=== PATIENT | female | born 1945 | race Caucasian/White ===

== ENCOUNTER 2024-11-04 16:00 | Emergency (ER) | payer OTHER, MEDICARE ==
[~2024-11-04] VITALS: Ht 162.6 cm; Wt 74.6 kg
[2024-11-04] MEDS ORDERED: AMLODIPINE BESYL5 MG PO (16:25)
[2024-11-04] MEDS ORDERED: TRAZODONE HCL50 MG PO (16:25)
[2024-11-04] MEDS ORDERED: XALATAN2.5 ML OPTH (16:25)
[2024-11-04 19:51] VITALS: BP 156/75
== END 2024-11-04 19:51 | disposition home or self-care (01) ==
LOC: ED 16:00
DX: S06.0X0A Concussion without loss of consciousness, initial encounter (principal); I10 Essential (primary) hypertension; G47.33 Obstructive sleep apnea (adult) (pediatric); V89.2XXA Person injured in unspecified motor-vehicle accident, traffic, initial encounter; Z79.899 Other long term (current) drug therapy; Z88.8 Allergy status to other drugs, medicaments and biological substances
CPT/HCPCS: 70450; 99284-25

== ENCOUNTER 2025-03-02 22:25 | Emergency (ER) | payer MEDICARE, OTHER ==
[~2025-03-02] VITALS: Ht 162.6 cm; Wt 72.5 kg
--- OUTSIDE RECORDS SUMMARY | ~2025-03-02 | XMS | Continuity of Care Document ---
Demographics + + + | Address | [address] | | | [place] [address] | + + + | Preferred Language | Unknown | + + + | Marital Status | | + + + | Gnosticist Affiliation | Unknown | + + + | Race | White | + + + | Ethnic Group | Not or | + + + Author + + + | Author | [facility] | + + + | Organization | [facility] | + + + | Address | [address] | | | [place] [address] | + + + | Phone | | + + + Care Team Providers + + + + | Care [employer] Professor Name | Role | Phone | + + + + Unavailable | Unavailable | + + + + Allergies No information. Encounters No information. Functional Status No information. Immunizations No information. Medications + + + + | date | description | facility | + + + + | (no date) | AMLODIPINE BESYLATE | [facility] | | | | [facility] | + + + + | (no date) | LATANOPROST | [facility] | | | | [facility] | + + + + | (no date) | TRAZODONE HCL | [facility] | | | | [facility] | + + + + Problems No information. Procedures No information. Results/Labs No information. Social History + + + + | date | description | facility | + + + + | (no date) | Unknown if ever smoked | [facility] | | | | [facility] | + + + + Vital Signs No information."
[~2025-03-02 22:25] MED LIST: AMLODIPINE BESYL5 MG PO; TRAZODONE HCL50 MG PO; XALATAN2.5 ML OPTH
[2025-03-02] MEDS ORDERED: FAMOTIDINE 20 MG/ 2 ML VIAL IV ONE (23:00)
[2025-03-02 23:08] LABS: BASOPHILS 1.0 % (0.1-1.2); EOSINOPHILS 0.6 % (0.7-5.8); LYMPHOCYTES 32.4 % (19.3-51.7); MCH 33.0 PG (25.6-32.2); MCHC 34.8 g/dL (32.2-35.5); MCV 94.9 fL (79.4-94.8); MONOCYTES 9.9 % (4.7-12.5); NEUTROPHILS 55.5 % (34.0-71.1); RBC 4.48 M/uL (3.93-5.22)
[2025-03-02 23:25] LABS: ALT (SGPT) 24.0 U/L (14-59); AST (SGOT) 20.0 U/L (15-37); GLOMERULAR FILTRATION RATE,EST 93.0 mL/min (>60); PROTEIN, TOTAL 7.1 g/dL (6.4-8.2); UREA NITROGEN 12.0 mg/dL (7-18)
[2025-03-02 23:34] LABS: BLOOD/HGB, URINE NEGATIVE (Negative); KETONE, URINE NEGATIVE (Negative); LEUK ESTERASE, URINE MODERATE (negative); NITRITE, URINE POSITIVE (negative)
[2025-03-02 23:39] LABS: EPITHELIAL CELLS, URINE SQUAMOUS 1+ /lpf (0-1+)
[2025-03-02 23:40] LABS: BACTERIA, URINE 4+ /hpf (negative); CASTS, URINE NONE SEEN \\lpf; CRYSTALS, URINE AMORPHOUS PHOSPH 3+ (0-1+); REFLEX CULTURE, URINE Yes (No)
[2025-03-02] MEDS ORDERED: NITROFURANTOIN MONOHYD MACROCR 100 MG CAP PO ONE (23:45)
[2025-03-03] MEDS ORDERED: LACTATED RINGER'S 1,000 ML IV ONE (00:45)
[2025-03-03] MEDS ORDERED: DEXAMETHASONE SOD PHOS 10 MG/ML VIAL IV ONE (01:30)
[2025-03-03 02:30] LABS: GLOMERULAR FILTRATION RATE,EST 94.0 mL/min (>60); UREA NITROGEN 11.0 mg/dL (7-18)
[2025-03-03 02:38] LABS: LACTIC ACID, BLOOD 1.6 mmol/L (0.4-2.0)
[2025-03-03] MEDS ORDERED: NITROFURANTOIN MONOHYD MACROCR 100 MG HOME.PACK PO ONE (03:30)
[2025-03-03] MEDS ORDERED: MACROBID 100 M100 MG PO (03:30)
[2025-03-03 03:47] VITALS: BP 157/72
--- NOTE | 2025-03-03 07:47 | EKG ---
[facility] [address] [place], [place] [address] Signed Normal sinus rhythm Normal ECG No previous ECGs available Confirmed by Aaron Butts DO ([id number]) on 03/03/2025 7:47:31 AM Electronically Signed By: AARON BUTTS DO 03/03/25 0747 PATIENT NAME: GLO GAY Electrocardiogram DATE OF : 47 PHYSICIAN: AARON BUTTS DO REPORT #: [id number] REPORT IS CONFIDENTIAL AND NOT TO BE RELEASED WITHOUT AUTHORIZATION
== END 2025-03-03 03:48 | disposition home or self-care (01) ==
LOC: ED 22:25
PROVIDERS: Internal Medicine
DX: N39.0 Urinary tract infection, site not specified (principal); T50.8X5A Adverse effect of diagnostic agents, initial encounter; I10 Essential (primary) hypertension; Z91.041 Radiographic dye allergy status; Z79.899 Other long term (current) drug therapy
CPT/HCPCS: 36415; 70450; 71045; 74177; 80048; 80053; 81001; 83605; 83690; 83880; 84484; 85025; 87088; 93005; 93010; 96374; 96375; 99284-25; J1100; J7121; Q9967